=== PATIENT | male | born 1940 | race Caucasian/White ===

== ENCOUNTER → 2021-03-09 | Outpatient (CLI) | payer MEDICARE, BC ==
--- NOTE | 2021-03-09 16:30 | RAD ---
MRI STUDY OF THE THIRD DIGIT OF THE RIGHT HAND WITHOUT CONTRAST Clinical indications: Spider bite inv olving the third digit one week ago. Redness near metacarpal phalangeal joint. COMPARISON: None available. FINDINGS: There is dorsal T2 soft tissue edema of the third digit more prominently involving the thir d metacarpal phalangeal joint area and the distal third and fourth and second metacarpal bones areas. On series 11 and images 15-17, there is a focal round area of increased T2 soft tissue signal involv ing the lateral dorsal aspect of the third digit at the level of the midshaft of the third proximal p halanx. This is also seen on series 6 and image 8 and series 5 and image 8. This measures 14 mm in gr eatest longitudinal dimension and 8 mm in greatest transverse dimension and 6 mm in greatest AP thick ness. This could represent a small subcutaneous soft tissue abscess or more focally prominent area of soft tissue edema. No tenosynovitis or tendon tear is seen involving the extensor tendons. There is mild tenosynovitis involving the flexor digitorum profunda tendon at the level of the distal third me tacarpal bone. This tendon is intact. There is a joint effusion of the third metacarpal phalangeal andrea int. There is T2 bone marrow edema of the proximal dorsal aspect of the third proximal phalanx. There is associated T1 marrow signal abnormality here. No cortical erosion is seen. No fracture line is se en. IMPRESSION: There is soft tissue edema of the third digit more prominent in the third metacarpal phal angeal joint area dorsally which extends into the distal aspect of the second and fourth metacarpal r egion of the hand. There is focal round soft tissue fullness of the dorsal lateral aspect of the thir d digit at the level of the midshaft of the third proximal phalanx which could represent a more focal ly prominent area of soft tissue edema but a developing abscess in this area is possible. There is no extensor tenosynovitis present. There is mild flexor tenosynovitis involving the flexor digitorum pr ofunda tendon at the level of the distal third metacarpal bone. 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 There is bone marrow signal abnormality involving the dorsal aspect of the proximal epiphysis of the third proximal phalanx. Early developing osteomyelitis is possible here. Electronically signed by: Mateusz Jordan MD (03/09/2021 4:28 PM) [id number]
== END ==
LOC: MRI 13:09
PROVIDERS: ATTEND Family Medicine
DX: M86.8X4 Other osteomyelitis, hand (principal); M65.841 Other synovitis and tenosynovitis, right hand
CPT/HCPCS: 73218